=== PATIENT | female | born 1995 | race Caucasian/White ===

== ENCOUNTER → 2016-05-11 | Outpatient (CLI) | payer BC ==
[~2016-05-11] MED LIST: ACNE MED; ALBU18002 INH; EPIDUO TOP; FLVHFA110 INH; MEDR150I IM; MINO100C22 PO
[2016-05-11 10:52] LABS: BASO % 0.3 %; BASO ABS # 0.03 K/uL (0-0.2); COMPLETE YES; EOS % 3.1 %; HEMATOCRIT 40.4 % (37-47); IG% 0.1 %; LYMPH % 24.4 %; LYMPH ABS # 2.28 K/uL (1.2-3.4); MEAN CELL VOLUME 73.1 fL (80-100); MEAN CORPUSCULAR HEMOGLOBIN 24.1 pg (25-34); MEAN CORPUSCULAR HGB CONC 32.9 g/dl (32-36); MEAN PLATELET VOLUME 9.4 fL (7.4-10.4); MONO % 6.1 %; PLATELET COUNT 462 K/uL (130-400); RED BLOOD COUNT 5.53 M/uL (4.2-5.4); WHITE BLOOD COUNT 9.34 K/uL (4.8-10.8)
[2016-05-11 11:03] LABS: BLOOD UREA NITROGEN 8 mg/dl (7-18); BUN/CREATININE RATIO 13.1 (10-20); CALCIUM 8.7 mg/dl (8.5-10.1); CARBON DIOXIDE 23 mmol/L (21-32); CHLORIDE 110 mmol/L (98-107); CREATININE 0.64 mg/dl (0.60-1.20); GLUCOSE 81 mg/dl (70-99); POTASSIUM 3.9 mmol/L (3.5-5.1); SODIUM 142 mmol/L (136-145)
[2016-05-11 11:42] LABS: ESTIMATED AVERAGE GLUCOSE 108 mg/dl; HA1C FLAG Normal (Normal)
== END | disposition home or self-care (01) ==
LOC: C.LABBC 08:38
PROVIDERS: ATTEND Internal Medicine Geriatric Medicine
DX: J45.909 Unspecified asthma, uncomplicated (principal); R73.9 Hyperglycemia, unspecified

== ENCOUNTER → 2016-06-04 | Day surgery (SDC) | payer BC ==
[2016-05-27 13:22] VITALS: Ht 167.6 cm; Wt 140.9 kg
[~2016-06-04] VITALS: Ht 167.6 cm; Wt 140.9 kg
[~2016-06-04] MED LIST changes: -ACNE MED; -EPIDUO TOP; +FENTANYL CITRATE INJ 50 MCG/1 ML 2 ML VIAL ONE; +LIDOCAINE HCL 2% 2 ML VIAL (20MG/ML) ONE; -MINO100C22 PO; +PROPOFOL IV EMULSION 10 MG/ML 20 ML VIAL IV ONE; +SODIUM CHLORIDE 0.9% 500ML 500 ML IV ONE
--- NOTE | 2016-06-04 12:58 | Endo History and Physical ---
History & Physical Date of Service: Jun 04, 2016. Chief Complaint: rectal bleeding Referring Physician: Dr. Juan José Bill History of Present Illness rectal bleeding Past Surgical History Hx Cardiac Surgery: No Hx Internal Defibrillator: No Hx Pacemaker: No Hx Abdominal Surgery: No Hx of Implantable Prosthesis: No Hx Post-Op Nausea and Vomiting: No Hx Cancer Surgery: No Hx Thoracic Surgery: No Hx Orthopedic: No Hx Urinary Tract Surgery: No Family History Colon CA, Polyp Social History Smoking Status: Never Smoker Hx Substance Use: No Hx Alcohol Use: Yes (RARELY) Allergies Coded Allergies: Amoxicillin (Verified Allergy, Unknown, HIVES, 05/27/16) Penicillins (Verified Allergy, Unknown, HIVES, 05/27/16) Sulfamethoxazole w/Trimethoprim (Verified Allergy, Unknown, RASH/HIVES, ) Current Medications Reported Home Medications Medications Dose Route/Sig Max Daily Dose Days Date Category Proair Respiclick (Albuterol Sulfate) 108 Mcg/Act Aer 2 Puff INH Q4H PRN 05/27/16 Reported Flovent Hfa (Fluticasone Propionate) 120 Puffs/96916 Mcg Aero 2 Puffs INH BID PRN 30 05/27/16 Reported Depo-Provera Contraceptiv (Medroxyprogesterone Acetate (C) 150 Mg/Ml Inj 1 Dose IM [id number] 05/27/16 Reported Vital Signs Weight (Kilograms): 140.91 Height (Feet): 5 Height (Inches): 6 Date Time Temp Pulse Resp B/P Pulse Ox O2 Delivery O2 Flow Rate FiO2 06/04/16 12:37 36.6 92 18 153/79 98 Room Air Physical Exam AAO x3 nl s1s2 lungs CTA Abd soft NT/ND + BS - CCE Assessment and Plan colonoscopy
--- NOTE | 2016-06-04 13:27 | Discharge Instructions ---
Endoscopy Patient Instructions Date / Procedure(s) Performed Jun 04, 2016. Colonoscopy Allergy Information Coded Allergies: Amoxicillin (Verified Allergy, Unknown, HIVES, 05/27/16) Penicillins (Verified Allergy, Unknown, HIVES, 05/27/16) Sulfamethoxazole w/Trimethoprim (Verified Allergy, Unknown, RASH/HIVES, ) Discharge Date / Findings Jun 04, 2016. hemorrhoids Medication Instructions Restart Stopped Medication(s): Reported Home Medications Medications Dose Route/Sig Max Daily Dose Days Date Category Proair Respiclick (Albuterol Sulfate) 108 Mcg/Act Aer 2 Puff INH Q4H PRN 05/27/16 Reported Flovent Hfa (Fluticasone Propionate) 120 Puffs/34902 Mcg Aero 2 Puffs INH BID PRN 30 05/27/16 Reported Depo-Provera Contraceptiv (Medroxyprogesterone Acetate (C) 150 Mg/Ml Inj 1 Dose IM [id number] 05/27/16 Reported Reported Home Medications Medications Dose Route/Sig Max Daily Dose Days Date Category Proair Respiclick (Albuterol Sulfate) 108 Mcg/Act Aer 2 Puff INH Q4H PRN 05/27/16 Reported Flovent Hfa (Fluticasone Propionate) 120 Puffs/59107 Mcg Aero 2 Puffs INH BID PRN 30 05/27/16 Reported Depo-Provera Contraceptiv (Medroxyprogesterone Acetate (C) 150 Mg/Ml Inj 1 Dose IM [id number] 05/27/16 Reported Provider Instructions Activity Restrictions - No exercising or heavy lifting for 24 hours. - Do not drink alcohol the day of the procedure. - Do not drive a car or operate machinery until the day after the procedure. - Do not make any important decisions or sign important papers in 24 hours after the procedure. Following Day: - Return to full activity which may include returning to work/school. Diet Start your diet with liquids and light foods (jello, soup, juice, toast). Then eat your usual diet if not nauseated. Treatment For Common After Affects For mild abdominal pain, bloating, or excessive gas: - Rest - Eat lightly - Lie on right side Follow-Up Information Follow-up with Dr. Juan José Bill as scheduled Anesthesia Information What You Should Know You have had a procedure that required some medicine to reduce anxiety and discomfort. This treatment is called moderate sedation. After receiving the treatment, you may be sleepy, but you will be able to breathe on your own. The effects of the treatment may last for several hours. Follow these instructions along with Activity/Diet recommendations noted above: * Do NOT do anything where dizziness or clumsiness would be dangerous. * Rest quietly at home today, then you can be up and about tomorrow. * Have a responsible person stay with you the rest of today. * You may have had an I.V. today. If so, you may take the dressing off later today. Recommendations Call your doctor if: * Trouble breathing * Continuous vomiting for more than 24 hours * Temperature above 101 degrees * Severe abdominal pain or bloating * Pain not relieved by pain medicine ordered * There is increased drainage or redness from any incision * A large amount of rectal bleeding greater than 2-3 tablespoons. (If you had a polyp/s removed or have hemorrhoids, a small amount of blood - from the rectum is to be expected.) * You have any unanswered questions or concerns. IN THE EVENT OF A SERIOUS EMERGENCY, GO TO THE NEAREST EMERGENCY ROOM Your discharge instructions were prepared by provider Braeden Mullen. Patient Instructions Signature Page Kaci Silverman Patient (or Guardian) Signature/Date: I have read and understand the instructions given to me by my caregivers. Caregiver/RN/Doctor Signature/Date: The above-named patient and/or guardian has received patient instructions on this date. + Original Patient Signature Page (only) stays with chart. Please make copy for patient.
--- NOTE | 2016-06-04 13:33 | GI REPORT ---
Procedure Date: 06/04/2016 1:01 PM Procedure: Colonoscopy Indications: Hematochezia, no wt loss or diarrhea. bleeding mostly painless; no straining reported.. + FH polyps( father) and CRC( PGM) Medicines: Propofol per Anesthesia Complications: No immediate complications. Estimated Blood Loss: Estimated blood loss: none. Procedure: Pre-Anesthesia Assessment: - Prior to the procedure, a History and Physical was performed, and patient medications and allergies were reviewed. The patient's tolerance of previous anesthesia was also reviewed. The risks and benefits of the procedure and the sedation options and risks were discussed with the patient. All questions were answered, and informed consent was obtained. Prior Anticoagulants: The patient has taken no previous anticoagulant or antiplatelet agents. ASA Grade Assessment: II - A patient with mild systemic disease. After reviewing the risks and benefits, the patient was deemed in satisfactory condition to undergo the procedure. After I obtained informed consent, the scope was passed under direct vision. Throughout the procedure, the patient's blood pressure, pulse, and oxygen saturations were monitored continuously. The Scope was introduced through the anus and advanced to the terminal ileum, with identification of the appendiceal orifice and IC valve. The colonoscopy was performed without difficulty. The patient tolerated the procedure well. The quality of the bowel preparation was good. Findings: The perianal and digital rectal examinations were normal. Pertinent negatives include normal sphincter tone, no palpable rectal lesions and no anal lesion or abnormality was detected. The terminal ileum appeared normal. The colon (entire examined portion) appeared normal. Non-bleeding internal hemorrhoids were found during retroflexion. The hemorrhoids were mild, small and Grade I (internal hemorrhoids that do not prolapse). Impression: - The examined portion of the ileum was normal. - The entire examined colon is normal. - Non-bleeding internal hemorrhoids. - No specimens collected. Recommendation: - Patient has a contact number available for emergencies. The signs and symptoms of potential delayed complications were discussed with the patient. Return to normal activities tomorrow. Written discharge instructions were provided to the patient. - Discharge patient to home (ambulatory). - High fiber diet. - Continue present medications. - Return to referring physician as previously scheduled. MD Braeden Montalvo MD 06/04/2016 1:33:20 PM This report has been signed electronically. Note Initiated On: 06/04/2016 1:01 PM
--- NOTE | 2016-06-04 13:54 | Anesthesiology Progress Note ---
Anesthesia Post Op Note Date & Time Jun 04, 2016 at 13:55 Vital Signs Pain Intensity: 0 Vital Signs Past 12 Hours Date Time Temp Pulse Resp B/P Pulse Ox O2 Delivery O2 Flow Rate FiO2 06/04/16 13:43 83 18 124/69 98 Room Air 06/04/16 13:28 82 18 119/71 98 Room Air 06/04/16 12:37 36.6 92 18 153/79 98 Room Air Notes Mental Status: alert / awake / arousable, participated in evaluation Pt Amnestic to Procedure: Yes Nausea / Vomiting: adequately controlled Pain: adequately controlled Airway Patency, RR, SpO2: stable & adequate BP & HR: stable & adequate Hydration State: stable & adequate Anesthetic Complications: no major complications apparent
[2016-06-04 13:58] VITALS: BP 132/66; PULSE 83; O2SAT 100
== END | disposition home or self-care (01) ==
LOC: C.GI 12:10
PROVIDERS: ATTEND Internal Medicine Gastroenterology
DX: K92.1 Melena (principal); K64.8 Other hemorrhoids; Z80.0 Family history of malignant neoplasm of digestive organs; Z88.0 Allergy status to penicillin; Z88.1 Allergy status to other antibiotic agents; Z88.2 Allergy status to sulfonamides

== ENCOUNTER 2017-06-17 19:30 | Emergency (ER) | payer BC ==
[~2017-06-17] VITALS: Ht 167.6 cm; Wt 148.7 kg
[~2017-06-17 19:30] MED LIST changes: -FENTANYL CITRATE INJ 50 MCG/1 ML 2 ML VIAL ONE; -LIDOCAINE HCL 2% 2 ML VIAL (20MG/ML) ONE; -PROPOFOL IV EMULSION 10 MG/ML 20 ML VIAL IV ONE; -SODIUM CHLORIDE 0.9% 500ML 500 ML IV ONE
[2017-06-17 19:36] VITALS: TEMP 36.8; Ht 167.6 cm; Wt 148.7 kg
[2017-06-17] MEDS ORDERED: KETOROLAC TROMETHAMINE 30 MG/ML VIAL IV STA (21:24)
[2017-06-17] MEDS ORDERED: SODIUM CHLORIDE 0.9% 1000ML 1,000 ML IV STA (21:24)
[2017-06-17] MEDS ORDERED: ONDANSETRON INJ 2 MG/ML 2 ML VIAL IV STA (21:24)
--- NOTE | 2017-06-17 21:27 | EMERGENCY ROOM VISIT NOTE ---
History Report prepared by Arnoldo: Shaun Mckay Under the Supervision of: Savage MejiaO. First contact with patient: 21:20 Chief Complaint: PELVIC PAIN Stated Complaint: LOWER LEFT BACK PAIN AROUND TO FRONT History of Present Illness The patient is a 21 year old female with a history of kidney stones who presents to the Emergency Room with complaints of worsening left flank pain that started this morning around 0900. She says that the pain radiates to her back, and has been constant and gradually worsening throughout the day. The patient states that her last CT scan for her stones was 5 or 6 years ago. She says that she had her first period in 5 years because she had been on the Depo shot. The patient denies any urinary symptoms or vaginal bleeding. She says that she has no history of ovarian cysts. Source of History: patient Onset: 0900 this morning Position: other (left flank) Quality: other (pain) Timing: constant, worsening Associated Symptoms: + back pain, No urinary symptoms Note: Denies vaginal bleeding. Review of Systems See HPI for pertinent positives & negatives. A total of 10 systems reviewed and were otherwise negative. Past Medical & Surgical Medical Problems: (1) Asthma Family History No pertinent family history Social History Smoking Status: Never Smoker Smokeless Tobacco Use: No Marital Status: single Occupation Status: employed Current/Historical Medications Scheduled PRN Albuterol Sulfate (Proair Respiclick), 2 PUFF INH Q4H PRN for Shortness of Breath Fluticasone Propionate (Flovent Hfa), 2 PUFFS INH BID PRN for Shortness of Breath Allergies Coded Allergies: Amoxicillin (Verified Allergy, Severe, HIVES, 06/17/17) Penicillins (Verified Allergy, Severe, HIVES, 06/17/17) Sulfamethoxazole w/Trimethoprim (Verified Allergy, Severe, RASH/HIVES, ) Physical Exam Vital Signs Date Time Temp Pulse Resp B/P (MAP) Pulse Ox O2 Delivery O2 Flow Rate FiO2 06/17/17 23:34 85 18 120/75 100 Room Air 06/17/17 21:37 83 129/74 98 Room Air 06/17/17 19:36 36.8 97 20 154/84 99 Room Air Physical Exam GENERAL: Patient is awake, alert, and in no acute distress. Patient is resting comfortably and showing no signs of anxiety EYES: The conjunctivae are clear. The pupils are round and reactive. EARS, NOSE, MOUTH AND THROAT: The nose is without any evidence of any deformity. Mucous membranes are moist tongue is midline NECK: The neck is nontender and supple. RESPIRATORY: Normal respiratory effort is noted there is no evidence of wheezing rhonchi or rales CARDIOVASCULAR: Regular rate and rhythm noted there no murmurs rubs or gallops normal S1 normal S2 GASTROINTESTINAL: The abdomen is soft. Bowel sounds are present in all quadrants. Abdomen is nontender PELVIS: The Pelvis is stable. No tenderness to palpation is noted. BACK: There was left CVA tenderness to percussion, no midline tenderness noted. Range of motion was intact. MUSCULOSKELETAL/EXTREMITIES: There is no evidence of gross deformity full range of motion is noted in the hips and shoulders SKIN: There is no obvious evidence of any rash. There are no petechiae, pallor or cyanosis noted. NEUROLOGIC: Patient is awake alert and oriented x3. Medical Decision & Procedures ER Provider Diagnostic Interpretation: CT results as stated below per my review and radiologist interpretation. ABDOMEN AND PELVIS CT WITHOUT CONTRAST CT DOSE: 1715.94 mGy.cm HISTORY: left flank pain TECHNIQUE: Multiaxial CT images of the abdomen and pelvis were performed without contrast. A dose lowering technique was utilized adhering to the principles of ALARA. COMPARISON STUDY: Abdomen and pelvis CT 05/08/2012. FINDINGS: The lung bases are clear. Mild subcutaneous edema seen within the lumbar region and the lateral abdominal morales. The unenhanced liver, spleen, adrenal glands, pancreas, and gallbladder are unremarkable. No renal or ureteral calculi. No hydronephrosis. No retroperitoneal lymphadenopathy. The uterus and ovaries are unremarkable. Suboptimal evaluation for bowel pathology due to the lack of intravenous and oral contrast. However, there is no definite bowel wall thickening or obstruction. A few scattered colonic diverticula. No evidence for diverticulitis. Normal appendix. IMPRESSION: 1. No renal or ureteral calculi. 2. No definite bowel wall thickening or obstruction. 3. Normal appendix. 4. A few scattered colonic diverticula. No evidence for acute diverticulitis. Electronically signed by: Gilberto Davis M.D. 06/17/2017 10:46 PM Dictated Date/Time: 06/17/2017 10:40 PM Laboratory Results 06/17/17 22:46 Red Blood Count 4.83, Mean Corpuscular Volume 73.1, Mean Corpuscular Hemoglobin 24.2, Mean Corpuscular Hemoglobin Concent 33.1, Mean Platelet Volume 8.6, Neutrophils (%) (Auto) 68.3, Lymphocytes (%) (Auto) 24.9, Monocytes (%) (Auto) 5.5, Eosinophils (%) (Auto) 0.9, Basophils (%) (Auto) 0.2, Neutrophils # (Auto) 8.40, Lymphocytes # (Auto) 3.06, Monocytes # (Auto) 0.68, Eosinophils # (Auto) 0.11, Basophils # (Auto) 0.03 06/17/17 22:45 Test 06/17/17 21:23 06/17/17 22:45 06/17/17 22:46 Urine Color YELLOW Urine Appearance CLEAR (CLEAR) Urine pH 7.0 (4.5-7.5) Urine Specific [place] 1.017 (1.000-1.030) Urine Protein NEG (NEG) Urine Glucose (UA) NEG (NEG) Urine Ketones TRACE (NEG) Urine Occult Blood NEG (NEG) Urine Nitrite NEG (NEG) Urine Bilirubin NEG (NEG) Urine Urobilinogen NEG (NEG) Urine Leukocyte Esterase NEG (NEG) Anion Gap 9.0 mmol/L (3-11) Est Creatinine Clear Calc Drug Dose 245.2 ml/min Estimated GFR () > 150.0 Estimated GFR (Non- 133.9 BUN/Creatinine Ratio 16.1 (10-20) Calcium Level 8.6 mg/dl (8.5-10.1) Total Bilirubin 0.3 mg/dl (0.2-1) Direct Bilirubin < 0.1 mg/dl (0-0.2) Aspartate Amino Transf (AST/SGOT) 16 U/L (15-37) Alanine Aminotransferase (ALT/SGPT) 30 U/L (12-78) Alkaline Phosphatase 101 U/L (45-117) Total Protein 6.9 gm/dl (6.4-8.2) Albumin 3.5 gm/dl (3.4-5.0) Lipase 79 U/L (73-393) Human Chorionic Gonadotropin, Qual NEG (NEG) White Blood Count 12.30 K/uL (4.8-10.8) Red Blood Count 4.83 M/uL (4.2-5.4) Hemoglobin 11.7 g/dL (12.0-16.0) Hematocrit 35.3 % (37-47) Mean Corpuscular Volume 73.1 fL (80-100) Mean Corpuscular Hemoglobin 24.2 pg (25-34) Mean Corpuscular Hemoglobin Concent 33.1 g/dl (32-36) Platelet Count 404 K/uL (130-400) Mean Platelet Volume 8.6 fL (7.4-10.4) Neutrophils (%) (Auto) 68.3 % Lymphocytes (%) (Auto) 24.9 % Monocytes (%) (Auto) 5.5 % Eosinophils (%) (Auto) 0.9 % Basophils (%) (Auto) 0.2 % Neutrophils # (Auto) 8.40 K/uL (1.4-6.5) Lymphocytes # (Auto) 3.06 K/uL (1.2-3.4) Monocytes # (Auto) 0.68 K/uL (0.11-0.59) Eosinophils # (Auto) 0.11 K/uL (0-0.5) Basophils # (Auto) 0.03 K/uL (0-0.2) RDW Standard Deviation 41.6 fL (36.4-46.3) RDW Coefficient of Variation 15.6 % (11.5-14.5) Immature Granulocyte % (Auto) 0.2 % Immature Granulocyte # (Auto) 0.02 K/uL (0.00-0.02) Laboratory results per my review. Medications Administered Medications (Trade) Dose Ordered Sig/Mary Route Start Time Stop Time Status Last Admin Dose Admin Ketorolac Tromethamine (Toradol Inj) 10 mg NOW STAT IV 06/17/17 21:24 06/17/17 21:25 DC 06/17/17 21:59 10 MG Sodium Chloride 1,000 ml @ 999 mls/hr Q1H1M STAT IV 06/17/17 21:24 06/17/17 22:24 DC 06/17/17 21:59 999 MLS/HR Ondansetron HCl (Zofran Inj) 4 mg NOW STAT IV 06/17/17 21:24 06/17/17 21:25 DC 06/17/17 21:59 4 MG Oxycodone HCl (Roxicodone Immediate Rel 5MG Home Pack) 1 homepack UD ONCE PO 06/17/17 23:45 06/17/17 23:46 DC 06/17/17 23:50 1 HOMEPACK Ondansetron HCl (ZOFRAN ODT 4MG Home Pack) 1 homepack UD ONCE PO 06/17/17 23:45 06/17/17 23:46 DC 06/17/17 23:50 1 HOMEPACK ED Course 2122: The patient was evaluated in room B9. A complete history and physical examination were performed. 2123: Ordered Zofran Inj 4 mg IV, NSS 1000 ml @ 999 mls/hr IV, Toradol Inj 10 mg IV. 2342: Upon reevaluation, the patient is resting. I discussed the results and treatment plan with her. She verbalized agreement of the treatment plan. She was discharged home. 2344: Ordered Zofran ODT 4MG Home Pack 1 homepack PO, Roxicodone Immediate Rel 5MG Home Pack 1 homepack PO. Medical Decision Differential diagnosis: Etiologies such as renal colic, appendicitis, diverticulitis, mesenteric ischemia, aortic pathology, infections, inflammatory bowel disease, PUD, biliary pathology, UTI, as well as others were entertained. Nursing notes reviewed. The patient is a 21-year-old female who presented to the emergency department for an evaluation of left lower quadrant pain and left flank pain. The patient states that she has a history of kidney stones. She was treated with IV fluids IV pain medicine and IV antiemetics. On subsequent reevaluation she was feeling much better. No definite cause for her pain could be found. Discussed patient's laboratory and radiographic studies with her. She was encouraged to follow-up with her primary care physician for further evaluation but return to the emergency department immediately if symptoms change worsening the need arises. Medication Reconcilliation Current Medication List: was personally reviewed by me Blood Pressure Screening Patient's blood pressure: Elevated blood pressure Blood pressure disposition: Elevated BP felt to be situational Impression Primary Impression: Left flank pain Scribe Attestation The scribe's documentation has been prepared under my direction and personally reviewed by me in its entirety. I confirm that the note above accurately reflects all work, treatment, procedures, and medical decision making performed by me. Departure Information Dispostion Home / Self-Care Referrals Juan José Bill M.D. (PCP) Patient Instructions Abdominal Pain, My [facility] Additional Instructions Continue all medications as prescribed. Rest and avoid any strenuous activity. Continue using Motrin and Tylenol as directed for mild pain. Follow-up with your family doctor soon as possible. Return to the emergency department immediately if symptoms change worsen or the need arises.
--- NOTE | 2017-06-17 22:48 | DIAGNOSTIC IMAGING REPORT ---
ABDOMEN AND PELVIS CT WITHOUT CONTRAST CT DOSE: 1715.94 mGy.cm HISTORY: left flank pain TECHNIQUE: Multiaxial CT images of the abdomen and pelvis were performed without contrast. A dose lowering technique was utilized adhering to the principles of ALARA. COMPARISON STUDY: Abdomen and pelvis CT 05/08/2012. FINDINGS: The lung bases are clear. Mild subcutaneous edema seen within the lumbar region and the lateral abdominal morales. The unenhanced liver, spleen, adrenal glands, pancreas, and gallbladder are unremarkable. No renal or ureteral calculi. No hydronephrosis. No retroperitoneal lymphadenopathy. The uterus and ovaries are unremarkable. Suboptimal evaluation for bowel pathology due to the lack of intravenous and oral contrast. However, there is no definite bowel wall thickening or obstruction. A few scattered colonic diverticula. No evidence for diverticulitis. Normal appendix. IMPRESSION: 1. No renal or ureteral calculi. 2. No definite bowel wall thickening or obstruction. 3. Normal appendix. 4. A few scattered colonic diverticula. No evidence for acute diverticulitis. Electronically signed by: Gilberto Davis M.D. 06/17/2017 10:46 PM Dictated Date/Time: 06/17/2017 10:40 PM
[2017-06-17 22:57] LABS: BASO % 0.2 %; BASO ABS # 0.03 K/uL (0-0.2); EOS % 0.9 %; EOS ABS # 0.11 K/uL (0-0.5); HEMATOCRIT 35.3 % (37-47); HEMOGLOBIN 11.7 g/dL (12.0-16.0); IG# 0.02 K/uL (0.00-0.02); LYMPH % 24.9 %; LYMPH ABS # 3.06 K/uL (1.2-3.4); MEAN CELL VOLUME 73.1 fL (80-100); MEAN CORPUSCULAR HEMOGLOBIN 24.2 pg (25-34); MEAN CORPUSCULAR HGB CONC 33.1 g/dl (32-36); MEAN PLATELET VOLUME 8.6 fL (7.4-10.4); MONO % 5.5 %; MONO ABS # 0.68 K/uL (0.11-0.59); NEUT % 68.3 %; PLATELET COUNT 404 K/uL (130-400); RED CELL DISTRIBUTION WIDTH CV 15.6 % (11.5-14.5); RED CELL DISTRIBUTION WIDTH SD 41.6 fL (36.4-46.3)
[2017-06-17 23:17] LABS: ALBUMIN 3.5 gm/dl (3.4-5.0); ALT/SGPT 30 U/L (12-78); BLOOD UREA NITROGEN 9 mg/dl (7-18); CALCIUM 8.6 mg/dl (8.5-10.1); CARBON DIOXIDE 22 mmol/L (21-32); CREATININE 0.54 mg/dl (0.60-1.20); GLUCOSE 82 mg/dl (70-99); LIPASE 79 U/L (73-393); POTASSIUM 3.8 mmol/L (3.5-5.1); SODIUM 139 mmol/L (136-145)
[2017-06-17 23:20] LABS: ALKALINE PHOSPHATASE 101 U/L (45-117); AST/SGOT 16 U/L (15-37); TOTAL PROTEIN 6.9 gm/dl (6.4-8.2)
[2017-06-17 23:34] VITALS: BP 120/75; PULSE 85; O2SAT 100
[2017-06-17] MEDS ORDERED: OXYCODONE IR HOME PACK PO ONE (23:45)
[2017-06-17] MEDS ORDERED: ONDANSETRON HOME PACK 4MG OD TAB PO ONE (23:45)
== END 2017-06-17 23:58 | disposition home or self-care (01) ==
LOC: C.EDB 19:31
DX: R10.9 Unspecified abdominal pain (principal); Z87.442 Personal history of urinary calculi; J45.909 Unspecified asthma, uncomplicated; Z88.1 Allergy status to other antibiotic agents; Z88.0 Allergy status to penicillin; Z88.2 Allergy status to sulfonamides